=== PATIENT | male | born 1985 | race Caucasian/White ===

== ENCOUNTER 2017-12-06 01:39 | Inpatient (IN) | payer BC ==
[~2017-12-06 01:39] MED LIST: ACETAMINOPHEN 1000MG/100ML IV 100 ML; BUPIVACAINE 0.25% (MPF) 30 ML INJ; CEFAZOLIN 1 GM INJ; KETOROLAC 30 MG INJ; MIDAZOLAM 1 MG/ML 2 ML INJ; ONDANSETRON 4 MG INJ; PROPOFOL 20 ML; ROCURONIUM 50 MG INJ; SUGAMMADEX SODIUM 200 MG/2 ML VIAL IV
[2017-12-06] MEDS: LIDOCAINE/MYLANTA 40 ML BTL PO (03:41)
[2017-12-06] MEDS: SOD CHLORIDE 0.9% 1,000 ML IV ×3 (03:41→18:06)
[2017-12-06] MEDS: FAMOTIDINE 20 MG INJ IV ×2 (03:41→20:47)
[2017-12-06 04:01] LABS: ADD MAN DIFF? NO
[2017-12-06 04:14] LABS: BASOPHILS % 0.3 % (0.0-2.0); EOSINOPHILS % 0.1 % (0.0-7.0); HEMATOCRIT 43.3 % (42.0-52.0); HEMOGLOBIN 14.8 g/dl (14.0-18.0); LYMPHOCYTES # 1.8 10^3/ul (0.8-2.9); LYMPHOCYTES % 11.6 % (15.0-51.0); MEAN CORPUSCULAR HEMOGLOBIN 28.4 pg (29.0-33.0); MEAN CORPUSCULAR HGB CONC 34.2 g/dl (32.0-37.0); MEAN PLATELET VOLUME 11.1 fl (7.4-10.4); MONOCYTE # 0.6 10^3/ul (0.3-0.9); MONOCYTES % 3.7 % (0.0-11.0); NEUTROPHIL # 13.1 10^3/ul (1.6-7.5); NEUTROPHILS % 83.8 % (39.0-77.0); PLATELET COUNT 234 10^3/UL (140-415); RED BLOOD COUNT 5.22 10^6/ul (4.70-6.10)
[2017-12-06 04:14] LABS: WHITE BLOOD COUNT 15.6 10^3/ul (4.8-10.8)
[2017-12-06] MEDS: ONDANSETRON 4 MG INJ IV (04:32)
[2017-12-06] MEDS: morphine 4 MG/ML VIAL IV (04:32)
[2017-12-06 04:35] LABS: ADD UMIC YES; UR ASCORBIC ACID NEGATIVE (NEGATIVE); UR BILIRUBIN (Dip) NEGATIVE (NEGATIVE); UR BLOOD (Dip) 1+ mg/dL (NEGATIVE); UR CLARITY CLEAR (CLEAR); UR COLOR YELLOW (YELLOW); UR GLUCOSE (Dip) NEGATIVE (NEGATIVE); UR KETONES (Dip) NEGATIVE (NEGATIVE); UR LEUKOCYTE ESTERASE (Dip) NEGATIVE Leu/ul (NEGATIVE); UR NITRITE (Dip) NEGATIVE (NEGATIVE); UR RBC 0 /HPF (0-5); UR SPECIFIC GRAVITY (Dip) 1.025 (1.003-1.030); UR TOTAL PROTEIN (Dip) NEGATIVE (NEGATIVE); UR UROBILINOGEN (Dip) NEGATIVE (NEGATIVE); UR WBC 1 /HPF (0-5)
[2017-12-06 04:39] LABS: ALANINE AMINOTRANSFERASE 57 IU/L (13-69); ALBUMIN 4.7 g/dl (3.3-4.9); ALKALINE PHOSPHATASE 111 IU/L (42-121); ANION GAP 16 (8-16); ASPARTATE AMINO TRANSFERASE 31 IU/L (15-46); BLOOD UREA NITROGEN 21 mg/dl (7-20); CALCIUM 9.4 mg/dl (8.4-10.2); CARBON DIOXIDE 27 mmol/L (21-31); CHLORIDE 103 mmol/L (97-110); CREATININE 1.02 mg/dl (0.61-1.24); GLUCOSE 111 mg/dl (70-220); LIPASE 1659 U/L (23-300); POTASSIUM 4.2 mmol/L (3.5-5.1); SODIUM 142 mmol/L (135-144); TOTAL PROTEIN 8.3 g/dl (6.1-8.1)
[2017-12-06 04:40] LABS: BILIRUBIN,INDIRECT 0.2 mg/dl (0-1.1); BILIRUBIN,TOTAL 0.2 mg/dl (0.2-1.3)
[2017-12-06] MEDS ORDERED: ONDANSETRON 4 MG INJ IV (07:00)
[2017-12-06] MEDS ORDERED: DOCUSATE SODIUM 100 MG CAP PO (07:00)
[2017-12-06] MEDS ORDERED: ALBUTEROL/IPRATROPIUM (NEB) 3 ML AMP HHN (07:00)
[2017-12-06] MEDS ORDERED: morphine 2 MG INJ IV (07:00)
[2017-12-06] MEDS ORDERED: NACL 0.9% 3 ML SYG IV (07:00)
[2017-12-06] MEDS ORDERED: NITROGLYCERIN (SL) 0.4 MG TAB SL (07:00)
[2017-12-06] MEDS ORDERED: hydrALAzine 20 MG INJ IV (07:00)
[2017-12-06] MEDS ORDERED: ACETAMINOPHEN 325 MG TAB PO (07:00)
[2017-12-06] MEDS ORDERED: LORAZEPAM 2 MG INJ IV (07:00)
[2017-12-06] MEDS ORDERED: MAGNESIUM HYDROXIDE 30ML CUP PO (07:00)
[2017-12-06] MEDS ORDERED: NA PHOSPHATE/BIPHOS 133 ML ENEMA PR (07:00)
[2017-12-06 07:03] LABS: INR 0.95; PROTIME 12.8 Sec (11.9-14.9)
[2017-12-06 07:04] LABS: PARTIAL THROMBOPLASTIN TIME 28.1 Sec (25.0-35.0)
[2017-12-06] MEDS: HYDROCODONE/APAP (5/325) TAB PO (07:24)
[2017-12-06 07:28] LABS: FREE T4 (FREE THYROXINE) 1.05 ng/dl (0.79-2.35)
[2017-12-06] MEDS ORDERED: LORAZEPAM 0.5 MG TAB PO (08:00)
[2017-12-06] MEDS ORDERED: ALBUTEROL HFA 8 GM INHALER INH (09:00)
[2017-12-06] MEDS: LORATADINE 10 MG TAB PO (09:00)
[2017-12-06] MEDS: FLUTICASONE 0.05% 16 GM NAS SPRAY NASAL (09:00)
[2017-12-06] MEDS ORDERED: HEPARIN 5,000 UNIT/0.5 ML VIAL SC (09:00)
[2017-12-07] MEDS: SOD CHLORIDE 0.9% 1,000 ML IV ×3 (02:40→14:47)
[2017-12-07 05:13] LABS: ADD MAN DIFF? NO
[2017-12-07 05:20] LABS: BASOPHILS % 0.2 % (0.0-2.0); EOSINOPHILS % 0.1 % (0.0-7.0); HEMATOCRIT 39.7 % (42.0-52.0); LYMPHOCYTES # 2.1 10^3/ul (0.8-2.9); LYMPHOCYTES % 16.8 % (15.0-51.0); MEAN CORPUSCULAR HEMOGLOBIN 28.6 pg (29.0-33.0); MEAN CORPUSCULAR HGB CONC 35.3 g/dl (32.0-37.0); MEAN PLATELET VOLUME 10.7 fl (7.4-10.4); MONOCYTE # 0.7 10^3/ul (0.3-0.9); MONOCYTES % 5.9 % (0.0-11.0); NEUTROPHIL # 9.5 10^3/ul (1.6-7.5); NEUTROPHILS % 76.6 % (39.0-77.0); PLATELET COUNT 207 10^3/UL (140-415); RED CELL DISTRIBUTION WIDTH 11.9 % (11.5-14.5)
[2017-12-07 05:20] LABS: WHITE BLOOD COUNT 12.4 10^3/ul (4.8-10.8)
[2017-12-07 05:58] LABS: LIPASE 226 U/L (23-300)
[2017-12-07] MEDS ORDERED: PANTOPRAZOLE (EC) 40 MG TAB PO (06:00)
[2017-12-07 06:03] LABS: ANION GAP 13 (8-16); BLOOD UREA NITROGEN 11 mg/dl (7-20); CALCIUM 9.3 mg/dl (8.4-10.2); CARBON DIOXIDE 26 mmol/L (21-31); CHLORIDE 103 mmol/L (97-110); CREATININE 0.82 mg/dl (0.61-1.24); GLUCOSE 94 mg/dl (70-220); PHOSPHORUS 3.1 mg/dl (2.5-4.9); SODIUM 138 mmol/L (135-144)
[2017-12-07 06:08] LABS: CHOLESTEROL 213 mg/dl (100-200)
[2017-12-07 06:08] LABS: CHOL/HDL RATIO 4.9 RATIO; HDL CHOLESTEROL 43 mg/dl (28-63); LDL CHOLESTEROL,CALCULATED 140 mg/dl; TRIGLYCERIDES 150 mg/dl (0-149)
[2017-12-07 06:38] LABS: THYROID STIMULATING HORMONE 0.492 MIU/L (0.465-4.680)
[2017-12-07 07:12] LABS: HEMOGLOBIN A1C 5.3 % (0-5.9)
[2017-12-07] MEDS: FAMOTIDINE 20 MG INJ IV (08:44)
[2017-12-07] MEDS: FAMOTIDINE 20 MG TAB PO (20:24)
[2017-12-08] MEDS: SOD CHLORIDE 0.9% 1,000 ML IV ×2 (00:06→08:40)
[2017-12-08 05:55] LABS: ADD MAN DIFF? NO
[2017-12-08 06:00] LABS: BASOPHILS % 0.2 % (0.0-2.0); EOSINOPHILS # 0.1 10^3/ul (0.0-0.5); EOSINOPHILS % 0.6 % (0.0-7.0); HEMATOCRIT 40.3 % (42.0-52.0); HEMOGLOBIN 13.9 g/dl (14.0-18.0); LYMPHOCYTES # 2.6 10^3/ul (0.8-2.9); LYMPHOCYTES % 20.3 % (15.0-51.0); MEAN CORPUSCULAR HEMOGLOBIN 28.5 pg (29.0-33.0); MEAN CORPUSCULAR HGB CONC 34.5 g/dl (32.0-37.0); MEAN CORPUSCULAR VOLUME 82.8 fl (82.0-101.0); MONOCYTE # 1.1 10^3/ul (0.3-0.9); MONOCYTES % 8.4 % (0.0-11.0); PLATELET COUNT 220 10^3/UL (140-415); RED BLOOD COUNT 4.87 10^6/ul (4.70-6.10); RED CELL DISTRIBUTION WIDTH 11.8 % (11.5-14.5)
[2017-12-08 06:00] LABS: WHITE BLOOD COUNT 12.9 10^3/ul (4.8-10.8)
[2017-12-08 06:35] LABS: ANION GAP 15 (8-16); BLOOD UREA NITROGEN 9 mg/dl (7-20); CALCIUM 9.1 mg/dl (8.4-10.2); CARBON DIOXIDE 27 mmol/L (21-31); CHLORIDE 102 mmol/L (97-110); CREATININE 0.99 mg/dl (0.61-1.24); GLUCOSE 97 mg/dl (70-220); SODIUM 140 mmol/L (135-144)
[2017-12-08 06:35] LABS: LIPASE 99 U/L (23-300)
== END 2017-12-08 15:30 | disposition home or self-care (01) | DRG 440 ==
LOC: E/R 01:39 → MS1 05:29
PROVIDERS: Hospitalist
DX: K85.90 Acute pancreatitis without necrosis or infection, unspecified (principal); K76.0 Fatty (change of) liver, not elsewhere classified; K21.9 Gastro-esophageal reflux disease without esophagitis; E78.00 Pure hypercholesterolemia, unspecified; K80.20 Calculus of gallbladder without cholecystitis without obstruction; H54.62 Unqualified visual loss, left eye, normal vision right eye; R10.13 Epigastric pain
CPT/HCPCS: 36415; 74181; 76705; 80048; 80053; 80061; 81001; 83036; 83690; 83735; 84100; 84439; 84443; 85025; 85610; 85730; 96374; 96375; 99285-25